=== PATIENT | male | born 1935 | race Caucasian/White ===

== ENCOUNTER 2017-12-11 11:27 | Emergency (ER) | payer MEDICARE, OTHER ==
[2017-12-11 11:57] LABS: BASO % 0 % (0-3); EOS # 0.1 x10^3/uL (0.0-0.7); EOS % 1 % (0-3); HEMATOCRIT 42.1 % (39.0-53.0); LYMPH # 0.6 x10^3/uL (1.0-4.8); LYMPH % 4 % (24-48); MEAN CORPUSCULAR HEMOGLOBIN 33 pg (25-35); MEAN CORPUSCULAR HGB CONC 33 g/dL (31-37); MEAN CORPUSCULAR VOLUME 99 fL (79-100); MONO # 0.9 x10^3/uL (0.0-1.1); MONO % 7 % (0-9); NEUT # 11.9 x10^3uL (1.8-7.7); NEUT % 88 % (31-73); PLATELET COUNT 169 x10^3/uL (140-400); RED BLOOD COUNT 4.25 x10^6/uL (4.30-5.70); RED CELL DISTRIBUTION WIDTH 13.6 % (11.5-14.5); WHITE BLOOD COUNT 13.5 x10^3/uL (4.0-11.0)
[2017-12-11 11:59] LABS: ANION GAP 11 (6-14); BLOOD UREA NITROGEN 43 mg/dL (8-26); BUN/CREATININE RATIO 20 (6-20); CALCIUM 9.3 mg/dL (8.5-10.1); CARBON DIOXIDE 27 mmol/L (21-32); CHLORIDE 102 mmol/L (98-107); CREATININE 2.1 mg/dL (0.7-1.3); GFR 30.6; GLUCOSE 243 mg/dL (70-99); POTASSIUM 5.2 mmol/L (3.5-5.1); SODIUM 140 mmol/L (136-145)
[2017-12-11 12:00] LABS: POC GLUCOSE 217 mg/dL (70-99)
[2017-12-11 12:05] LABS: ADD MAN DIFF? YES; ALBUMIN 4.2 g/dL (3.4-5.0); ALBUMIN/GLOBULIN RATIO 1.3 (1.0-1.7); ALK PHOS 76 U/L (46-116); ALT (SGPT) 43 U/L (16-63); AST (SGOT) 24 U/L (15-37); CREATINE KINASE 202 U/L (39-308); TOTAL BILIRUBIN 0.6 mg/dL (0.2-1.0); TOTAL PROTEIN 7.5 g/dL (6.4-8.2)
[2017-12-11 12:06] LABS: BASE EXCESS COOX -1 mmol/L (-3-3); CARBON MONOXIDE 0.2 % (0.0-1.9); HCO3 COOX 23 mmol/L (21-28); METHEMOGLOBIN 0.4 % (0.0-1.9); OXYHEMOGLOBIN 93.1 %; PCO2 COOX 37 mmHg (35-46); PH COOX 7.41 (7.35-7.45); PO2 COOX 70 mmHg (65-108); SAT O2 COOX 94 % (92-99); TOTAL HEMOGLOBIN 13.9 g/dL
[2017-12-11 12:08] LABS: PROTHROMBIN TIME PATIENT 12.8 SEC (11.7-14.0)
[2017-12-11 12:11] LABS: NT-PRO BNP 12783 pg/mL (0-449)
[2017-12-11 12:14] LABS: BILIRUBIN,URINE NEGATIVE (NEG); CLARITY,URINE CLEAR; COLOR,URINE YELLOW; GLUCOSE,URINE 250 mg/dL (NEG); NITRITE,URINE NEGATIVE (NEG); PROTEIN,URINE >=300 mg/dL (NEG-TRACE); UROBILINOGEN,URINE 0.2 mg/dL (0.2 mg/dL)
[2017-12-11 12:28] LABS: AMORPHOUS SEDIMENT,UR PRESENT /HPF; BACTERIA,URINE 0 /HPF (0-FEW); HYALINE CASTS, URINE MODERATE /HPF; WBC,URINE 0 /HPF (0-4)
[2017-12-11] MEDS: IOHEXOL 300 MG/ML 100ML VIAL. IV ×2 (12:49)
[2017-12-11 13:23] LABS: % BANDS 5 % (0-9); % LYMPHS 6 % (24-48); % METAS 2 % (0-0); % MONOS 3 % (0-10); % MYELOS 1 % (0-0); % SEGS 83 % (35-66); PLT ESTIMATE ADEQUATE (ADEQUATE)
[2017-12-11] MEDS ORDERED: ONDANSETRON PF 4 MG/2 ML VIAL. ×2 (13:57)
[2017-12-11] MEDS: ONDANSETRON PF 4 MG/2 ML VIAL. IV ×2 (14:04)
== END 2017-12-11 14:36 | disposition short-term general hospital (02) ==
LOC: ER 11:27
DX: I63.9 Cerebral infarction, unspecified (principal); E11.9 Type 2 diabetes mellitus without complications; Z86.73 Personal history of transient ischemic attack (TIA), and cerebral infarction without residual deficits; N40.0 Benign prostatic hyperplasia without lower urinary tract symptoms; M10.9 Gout, unspecified; I10 Essential (primary) hypertension; Z88.5 Allergy status to narcotic agent; Z88.8 Allergy status to other drugs, medicaments and biological substances; W18.39XA Other fall on same level, initial encounter; Y93.89 Activity, other specified; Y99.8 Other external cause status; Y92.89 Other specified places as the place of occurrence of the external cause
CPT/HCPCS: 36415; 36600; 70450; 70496; 70498; 71045; 72125; 72170; 80053; 81001; 82550; 82805; 82962; 83880; 85007; 85025; 85610; 93005; 96374; 99291-25; J2405; Q9967